=== PATIENT | male | born 1985 | race Caucasian/White ===

== ENCOUNTER 2018-08-15 17:14 | Emergency (ER) | payer OTHER ==
[2018-08-15 17:22] VITALS: BP 143/98
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
[2018-08-15] MEDS ORDERED: CHERRY SYRUP 10 ML UDC PO ONE (17:34)
[2018-08-15] MEDS ORDERED: DEXAMETHASONE 10 MG/ML VIAL PO STA (17:34)
--- NOTE | 2018-08-15 18:23 | XRAY Report ---
Reason: rotational injury proximal pain Procedure Date: 08/15/2018 Accession Number: [id number] / [id number] Procedure: XR - Shoulder 3 View RT CPT Code: FULL RESULT: EXAM: RIGHT SHOULDER RADIOGRAPHY EXAM DATE: 08/15/2018 05:43 PM. CLINICAL HISTORY: Rotational injury proximal pain. COMPARISON: None. TECHNIQUE: 3 views. FINDINGS: Bones: Normal. No fracture or bone lesion. Joints: The glenohumeral and acromioclavicular joints are normal. Soft tissues: The visualized hemithorax is unremarkable. No soft tissue swelling. IMPRESSION: Negative shoulder radiography. [facility]
== END 2018-08-15 17:59 | disposition home or self-care (01) ==
LOC: ED 17:14
DX: M75.51 Bursitis of right shoulder (principal)
CPT/HCPCS: 73030; 99283; A9270

== ENCOUNTER 2020-07-11 13:08 | Outpatient (CLI) | payer OTHER ==
[2020-07-11 17:44] LABS: BASOPHILS # (AUTO) 0.1 10^3/uL (0.0-0.1); BASOPHILS % (AUTO) 0.9 %; EOSINOPHILS # (AUTO) 0.3 10^3/uL (0.0-0.7); EOSINOPHILS % (AUTO) 5.4 %; HCT - HEMATOCRIT 48.6 % (42.0-52.0); HGB - HEMOGLOBIN 16.1 g/dL (14.0-18.0); LYMPHOCYTES % (AUTO) 31.5 %; MEAN CORPUSCULAR HEMOGLOBIN 32.3 pg (27.0-31.0); MEAN CORPUSCULAR HGB CONC 33.1 g/dL (32.0-36.0); MEAN CORPUSCULAR VOLUME 97.4 fL (80.0-94.0); MONOCYTES # (AUTO) 0.6 10^3/uL (0.0-1.0); MONOCYTES % (AUTO) 8.7 %; NEUTROPHILS # (AUTO) 3.4 10^3/uL (1.5-6.6); PLT - PLATELET COUNT 249 10^3/uL (130-450); RED BLOOD COUNT 4.99 10^6/uL (4.70-6.10); RED CELL DISTRIBUTION WIDTH 12.2 % (12.0-15.0); WHITE BLOOD COUNT 6.4 x10^3/uL (4.8-10.8)
[2020-07-11 17:55] LABS: ALBUMIN 4.4 g/dL (3.2-5.5); ALBUMIN/GLOBULIN RATIO 1.3 (1.0-2.2); BILIRUBIN,TOTAL 0.5 mg/dL (0.2-1.0); CALCIUM 9.5 mg/dL (8.5-10.3); CREATININE 0.8 mg/dL (0.6-1.2); POTASSIUM 5.1 mmol/L (3.5-5.0); TOTAL PROTEIN 7.9 g/dL (6.7-8.2)
== END 2020-07-11 13:09 | disposition home or self-care (01) ==
LOC: LAB.N 13:08
PROVIDERS: ATTEND Registered Nurse
DX: Z79.899 Other long term (current) drug therapy (principal)
CPT/HCPCS: 36415; 80053; 85025

== ENCOUNTER 2020-07-11 13:20 | Outpatient (CLI) | payer OTHER ==
--- NOTE | 2020-07-11 15:55 | XRAY Report ---
PROCEDURE: Shoulder 2 View BILAT INDICATIONS: BILATERAL SHOULER PX TECHNIQUE: 2 views of each shoulder were acquired. COMPARISON: None. FINDINGS: Bones: No fractures or dislocations. No suspicious bony lesions. Visualized ribs appear intact. Soft tissues: No suspicious soft tissue calcifications. IMPRESSION: No acute fracture. No osseous lesion. If symptoms and/or clinical suspicion for patholog y continue, further assessment with repeat plain films, or advanced imaging (e.g., CT, MRI, or bone s can) is recommended for further assessment. Reviewed by: Magdy Parker MD on 07/11/2020 3:54 PM PDT Approved by: Magdy Parker MD on 07/11/2020 3:54 PM PDT Station ID: [id number]
== END 2020-07-11 13:21 | disposition home or self-care (01) ==
LOC: DI.N 13:20
PROVIDERS: ATTEND Registered Nurse
DX: M25.511 Pain in right shoulder (principal); M25.512 Pain in left shoulder; Z79.899 Other long term (current) drug therapy
CPT/HCPCS: 36415; 80053; 85025